=== PATIENT | female | born 1950 | race Caucasian/White ===

== ENCOUNTER 2017-08-09 09:04 | Day surgery (SDC) | payer OTHER ==
[2017-08-09] MEDS ORDERED: LIDOCAINE 100 MG SYRINGE (11:01)
[2017-08-09] MEDS ORDERED: PROPOFOL 60 ML (11:01)
== END 2017-08-09 13:46 | disposition home or self-care (01) ==
LOC: GIL 09:04
DX: K92.1 Melena (principal); K29.60 Other gastritis without bleeding; D12.6 Benign neoplasm of colon, unspecified; K64.8 Other hemorrhoids; E03.9 Hypothyroidism, unspecified; E78.5 Hyperlipidemia, unspecified; J45.909 Unspecified asthma, uncomplicated; E66.9 Obesity, unspecified; Z68.35 Body mass index [BMI] 35.0-35.9, adult; Z87.891 Personal history of nicotine dependence
CPT/HCPCS: 43239; 87081; 88305